=== PATIENT | female | born 1980 | race Caucasian/White ===

== ENCOUNTER 2016-07-13 12:17 | Emergency (ER) | payer MEDICAID ==
[~2016-07-13] VITALS: Ht 154.9 cm; Wt 58.0 kg
[~2016-07-13 12:17] MED LIST: ACET325T45 PO; ACYC400T2 PO; BACTDS PO; BEN25 PO; CEPH-443 PO; CIPR500T4 PO; FAMO20TA18 PO; HYDR-3498 PO; IBUP-1542 PO; IBUP400T22 PO; NAPR-260 PO; PRED20TA PO; TRAM50TA2 PO
[2016-07-13 12:19] VITALS: Ht 154.9 cm; Wt 58.0 kg
[2016-07-13] MEDS ORDERED: IBUP800T25 PO (13:42)
--- NOTE | 2016-07-13 13:44 | ERD ---
ER Documentation Chief Complaint Date/Time DATE: 07/13/16 TIME: 13:[address] TODAY HPI 35-year-old female who presents with sore throat today. 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 The patient describes mild headache, dry nonproductive cough, sore throat. She also describes mild ear congestion. She denies any fevers or chills, no difficulty swallowing. She has not taken anything for the symptoms. ROS All systems reviewed and are negative except as per history of present illness. Medications Home Meds Active Scripts Ibuprofen* (Motrin*) 800 Mg Tab, 800 MG PO Q6H Y for PAIN AND OR ELEVATED TEMP, #30 TAB Prov:CAROLE LINK MD 07/13/16 Ibuprofen* (Motrin*) 600 Mg Tab, 600 MG PO Q6H Y for PAIN AND OR ELEVATED TEMP, #30 TAB Prov:RAFFI CORDOBA PA-C 02/26/16 Hydrocodone Bit-Acetaminophen* ([place]*) 5-325 Mg Tab, 1 TAB PO Q4H Y for PAIN, # 10 TAB Prov:ANI HUMMEL PA-C 12/03/15 Acyclovir* (Acyclovir*) 400 Mg Tablet, 400 MG PO QID for 7 Days, TAB Prov:ANI HUMMEL PA-C 12/03/15 Diphenhydramine Hcl* (Benadryl*) 25 Mg Cap, 25 MG PO Q6 for ITCHING, #30 CAP Prov:JOSEPH MCNALLY DO 11/11/15 Prednisone* (Prednisone*) 20 Mg Tab, 60 MG PO DAILY for 5 Days, TAB Prov:JOSEPH MCNALLY DO 11/11/15 Ibuprofen* (Motrin*) 400 Mg Tab, 400 MG PO Q6H Y for PAIN, #30 TAB Prov:THEO DILL PA-C 09/18/15 Cephalexin* (Keflex*) 500 Mg Capsule, 500 MG PO QID for 10 Days, CAP Prov:THEO DILL PA-C 09/18/15 Sulfamethoxazole-Trimethoprim* (Bactrim* DS) 800-160 Mg Tab, 1 TAB PO BID for 7 Days, TAB Prov:THEO DILL PA-C 09/18/15 Tramadol HCl (Tramadol HCl) 50 Mg Tablet, 50 MG PO Q6 Y for PAIN, #20 TAB Prov:ADAMA PRINCE NP 07/09/15 Tramadol HCl (Tramadol HCl) 50 Mg Tablet, 50 MG PO Q4 Y for PAIN, #20 TAB Prov:ADAMA PRINCE NP 07/09/15 Ibuprofen* (Motrin*) 600 Mg Tab, 600 MG PO Q6, #20 TAB Prov:P[place]KE MD 04/29/15 Hydrocodone Bit-Acetaminophen* ([place]*) 5-325 Mg Tab, 1 TAB PO Q6 Y for PAIN, # 12 TAB Prov:P[place] LAKE MD 04/29/15 Naproxen* (Naprosyn*) 500 Mg Tablet, 500 MG PO BID Y for PAIN AND/OR INFLAMMATION, #30 TAB Prov:ARELIS REEDER PA-C 03/30/15 Ciprofloxacin Hcl* (Ciprofloxacin Hcl*) 500 Mg Tablet, 500 MG PO BID for 10 Days , TAB Prov:ARELIS REEDER PA-C 03/30/15 Acetaminophen* (Acetaminophen*) 325 Mg Tablet, 650 MG PO Q4H Y for PAIN AND OR ELEVATED TEMP, #30 TAB Prov:ARELIS REEDER PA-C 02/18/15 Famotidine* (Famotidine*) 20 Mg Tablet, 20 MG PO BID, #30 TAB Prov:ARELIS REEDER PA-C 02/18/15 Allergies Allergies: Coded Allergies: No Known Allergy (Unverified , 04/06/14) PMhx/Soc History of Surgery: No Anesthesia Reaction: No Hx Neurological Disorder: No Hx Respiratory Disorders: No Hx Cardiac Disorders: No Hx Psychiatric Problems: No Hx Miscellaneous Medical Probl: No Hx Alcohol Use: No Hx Substance Use: No Hx Tobacco Use: No FmHx Family History: No diabetes Physical Exam Vitals Vital Signs Date Time Temp Pulse Resp B/P Pulse Ox O2 Delivery O2 Flow Rate FiO2 07/13/16 12:19 98.4 77 20 115/58 99 Physical Exam General: Well developed, well nourished, no acute distress Head: Normocephalic, atraumatic. Eyes: Pupils equally reactive, EOM intact ENT: Moist mucous membranes, posterior pharynx with slight erythema no tonsillar swelling or exudates, uvula midline, tympanic membranes are nonbulging bilaterally Neck: Supple, no lymphadenopathy Respiratory: Lungs clear bilaterally, no distress Cardiovascular: RRR, no murmurs, rubs, or gallops Abdominal: Soft, non-tender, non-distended, no peritoneal signs : Deferred MSK: No edema, no unilateral swelling, 5/5 strength Neurologic: Alert and oriented, moving all extremities, normal speech, no focal weakness, no cerebellar signs Skin: No rash Psych: Normal mood Procedures/MDM The patient's clinical presentation is very consistent with an acute viral syndrome. 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 Based on history and clinical exam findings the patient does not appear to have evidence of pneumonia, strep pharyngitis, urinary tract infection, bacteremia, sepsis, or meningitis. For these reasons I do not believe it is necessary to obtain laboratory testing or diagnostic imaging. I believe it would be appropriate for symptom control, and close outpatient primary care follow-up. We discussed follow up with the patient's primary care doctor within 24 to 48 hours as needed. We also discussed return to the emergency room for worsening symptoms or worsening condition. Discharge Medications: Motrin Departure Diagnosis: Primary Impression: Acute viral pharyngitis Condition: Stable Patient Instructions: Pharyngitis, Viral Referrals: [facility] Usted se baxter hecho un examen mdico de control que le indica que no est en kristin condicin que requiera tratamiento urgente en el Departamento de Emergencia. Un estudio ms profundo y el tratamiento de aguilar condicin pueden esperar sin ningn riesgo hasta que usted sea atendida/o en el consultorio de aguilar mdico o kristin cl jared. Es responsabilidad suya arreglar kristin vadim para el seguimiento del arianna. MANEJO DE CONDICIONES NO URGENTES EN EL FUTURO 1) Si usted tiene un mdico de atencin primaria: Usted debera llamar a aguilar mdico de atencin primaria antes de venir al departamento de emergencia. Despus de las horas de consultorio, aguilar doctor o aguilar asociado/a est disponible por telfono. El mdico o enfermero de rosa en el servicio telefnico puede asesorarle por bora medio para atender el problema, o arianna contrario se puede programar kristin vadim. 2) Si usted no tiene un mdico de atencin primaria: Llame al mdico o clnica de referencia que aparece abajo manny las horas de consultorio para hacer kristin vadim para que le vean. CLINICAS: [facility] [phone] [facility] [phone] [address] [facility] [phone] [address] [facility]. [place] [id number] [phone] [facility] [place] [id number] [phone] [facility]. [phone] [facility]. [facility] () Usted se baxter hecho un examen mdico de control que le indica que no est en kristin condicin que requiera tratamiento urgente en el Departamento de Emergencia. Un estudio ms profundo y el tratamiento de aguilar condicin pueden esperar sin ningn riesgo hasta que usted sea atendida/o en el consultorio de aguilar mdico o kristin cl jared. Es responsabilidad suya arreglar kristin vadim para el seguimiento del arianna. MANEJO DE CONDICIONES NO URGENTES EN EL FUTURO 1) Si usted tiene un mdico de atencin primaria: Usted debera llamar a aguilar mdico de atencin primaria antes de venir al departamento de emergencia. Despus de las horas de consultorio, aguilar doctor o aguilar asociado/a est disponible por telfono. El mdico o enfermero de rosa en el servicio telefnico puede asesorarle por bora medio para atender el problema, o arianna contrario se puede programar kristin vadim. 2) Si usted no tiene un mdico de atencin primaria: Llame al mdico o condado institucions de referencia que aparece abajo manny las horas de consultorio para hacer kristin vadim para que le vean. SI USTED NO PUEDE PAGAR PARA HARDIK UN MEDICO puede ir a: [facility] [address] [place] [address] [facility] [address] [place] [address] [facility] [address] [place] [address] [facility] [facility] [address] [place], [place] [id number] Additional Instructions: Llame al doctor nombrado abajo (Referral Sources) MAANA y patrick kristin VADIM PARA DENTRO DE KRISTIN SEMANA. Dgale a la secretaria que nosotros le instruimos hacer esta vadim.Avise o llame si aguilar condicin se empeora antes de la vadim. CAROLE LINK MD Jul 13, 2016 13:44
== END 2016-07-13 14:11 | disposition home or self-care (01) ==
LOC: FTE 12:17
DX: J02.8 Acute pharyngitis due to other specified organisms (principal); B97.89 Other viral agents as the cause of diseases classified elsewhere
CPT/HCPCS: 99283

== ENCOUNTER 2016-07-20 14:02 | Emergency (ER) | payer MEDICAID ==
[~2016-07-20] VITALS: Wt 62.0 kg
[~2016-07-20 14:02] MED LIST changes: +IBUP800T25 PO
[2016-07-20] MEDS ORDERED: IBUP-1542 PO (15:27)
[2016-07-20] MEDS ORDERED: AMO500 PO (15:27)
--- NOTE | 2016-07-20 15:27 | ERD ---
ER Documentation Chief Complaint Date/Time DATE: 07/20/16 Chief Complaint Fever, Left ear pain HPI The patient is a 35-year-old female who presents the Emergency Department with complaint of left ear pain for the past 4 days. The patient reports that over the past week she has developed some nasal congestion, intermittent fevers, sore throat and a mild, dry cough. Four days ago she developed left-sided pulsating air pain, which has become progressively worse since onset. Over the past one day she has noted decreased acuity of hearing to that ear, though continues to experience the same pain. She denies any pain to the external ear. Denies any otorrhea or bloody discharge. Denies any recent swimming or large water exposure. She rates her current pain as 7 out of 10, the notes that she has not yet taken any medication for pain relief. She denies any neck pain, neck stiffness or new rashes. Denies sick contacts with similar symptoms. ROS All systems reviewed and are negative except as per history of present illness. Medications Home Meds Active Scripts Ibuprofen* (Motrin*) 600 Mg Tab, 600 MG PO Q6, #30 TAB Prov:SILVESTRE PIÑA PA-C 07/20/16 Amoxicillin* (Amoxicillin*) 500 Mg Cap, 500 MG PO TID for 10 Days, CAP Prov:SILVESTRE PIÑA PA-C 07/20/16 Ibuprofen* (Motrin*) 800 Mg Tab, 800 MG PO Q6H Y for PAIN AND OR ELEVATED TEMP, #30 TAB Prov:CAROLE LINK MD 07/13/16 Ibuprofen* (Motrin*) 600 Mg Tab, 600 MG PO Q6H Y for PAIN AND OR ELEVATED TEMP, #30 TAB Prov:RAFFI CORDOBA PA-C 02/26/16 Hydrocodone Bit-Acetaminophen* ([place]*) 5-325 Mg Tab, 1 TAB PO Q4H Y for PAIN, # 10 TAB Prov:ANI HUMMEL PA-C 12/03/15 Acyclovir* (Acyclovir*) 400 Mg Tablet, 400 MG PO QID for 7 Days, TAB Prov:ANI HUMMEL PA-C 12/03/15 Diphenhydramine Hcl* (Benadryl*) 25 Mg Cap, 25 MG PO Q6 for ITCHING, #30 CAP Prov:JOSEPH MCNALLY DO 11/11/15 Prednisone* (Prednisone*) 20 Mg Tab, 60 MG PO DAILY for 5 Days, TAB Prov:ELIZABETHGENEVIEVECHANCELEISA Rojas DO 11/11/15 Ibuprofen* (Motrin*) 400 Mg Tab, 400 MG PO Q6H Y for PAIN, #30 TAB Prov:THEO DILLC 09/18/15 Cephalexin* (Keflex*) 500 Mg Capsule, 500 MG PO QID for 10 Days, CAP Prov:THEO DILLC 09/18/15 Sulfamethoxazole-Trimethoprim* (Bactrim* DS) 800-160 Mg Tab, 1 TAB PO BID for 7 Days, TAB Prov:THEO DILLC 09/18/15 Tramadol HCl (Tramadol HCl) 50 Mg Tablet, 50 MG PO Q6 Y for PAIN, #20 TAB Prov:ADAMA PRINCE NP 07/09/15 Tramadol HCl (Tramadol HCl) 50 Mg Tablet, 50 MG PO Q4 Y for PAIN, #20 TAB Prov:ADAMA PRINCE NP 07/09/15 Ibuprofen* (Motrin*) 600 Mg Tab, 600 MG PO Q6, #20 TAB Prov:PAL LAKE MD 04/29/15 Hydrocodone Bit-Acetaminophen* ([place]*) 5-325 Mg Tab, 1 TAB PO Q6 Y for PAIN, # 12 TAB Prov:PAL LAKE MD 04/29/15 Naproxen* (Naprosyn*) 500 Mg Tablet, 500 MG PO BID Y for PAIN AND/OR INFLAMMATION, #30 TAB Prov:ARELIS REEDER PA-C 03/30/15 Ciprofloxacin Hcl* (Ciprofloxacin Hcl*) 500 Mg Tablet, 500 MG PO BID for 10 Days , TAB Prov:ARELIS REEDER PA-C 03/30/15 Acetaminophen* (Acetaminophen*) 325 Mg Tablet, 650 MG PO Q4H Y for PAIN AND OR ELEVATED TEMP, #30 TAB Prov:ARELIS REEDER PA-C 02/18/15 Famotidine* (Famotidine*) 20 Mg Tablet, 20 MG PO BID, #30 TAB Prov:ARELIS REEDER PA-C 02/18/15 Allergies Allergies: Coded Allergies: No Known Allergy (Unverified , 04/06/14) PMhx/Soc History of Surgery: No Anesthesia Reaction: No Hx Neurological Disorder: No Hx Respiratory Disorders: No Hx Cardiac Disorders: No Hx Psychiatric Problems: No Hx Miscellaneous Medical Probl: No Hx Alcohol Use: No Hx Substance Use: No Hx Tobacco Use: No Physical Exam Vitals Vital Signs Date Time Temp Pulse Resp B/P Pulse Ox O2 Delivery O2 Flow Rate FiO2 07/20/16 14:28 98.8 70 20 115/65 98 Physical Exam GENERAL: Well-developed, well-nourished, in no acute distress HEENT: Head is normocephalic, atraumatic. No scleral pallor or icterus. Pupils equal, round and reactive to light. Extraocular movements intact. Conjunctiva pink. Left tympanic membrane is erythematous, with a small perforation noted. No erythema or edema of external auditory canals. Hearing grossly intact. No mastoid tenderness. No tenderness upon palpation or manipulation of tragus or pinna. Right tympanic membrane is clear with no evidence of erythema, effusion or dulling of the light reflex. Moist mucous membranes. No pharyngeal erythema or exudates. Uvula is midline. NECK: Supple. No masses, no tenderness, no lymphadenopathy. Trachea midline. No nuchal rigidity. Full range of motion. RESPIRATORY: Lungs are clear to auscultation bilaterally. No rales, rhonchi or wheezing. Equal breath sounds. Normal expiratory effort. CARDIOVASCULAR: Regular rate and rhythm. S1 and S2 normal. GASTROINTESTINAL: Abdomen is soft, nontender, and nondistended. EXTREMITIES: No clubbing, cyanosis, or edema. Normal skin perfusion. Moving all extremities. No focal swelling or erythema. Distal pulses are palpable, 2+ bilaterally. Capillary refill is less than 2 seconds. NEUROLOGIC: The patient is alert, awake, and oriented x 3. No focal neurologic deficits. Speech is normal. INTEGUMENT: Skin is clean, dry and intact. No rashes, lesions or petechiae present. Normal turgor. PSYCHIATRIC: Appropriate; Cooperative. Procedures/MDM This is a 35-year-old female presenting to the Emergency Department with complaint of left ear pain, worsening over the past 4 days. Over the past week she has developed a mild, dry cough, sore throat and intermittent fevers. On physical examination, the patient's left tympanic membrane was erythematous with a perforation noted. Otherwise, vital signs were normal. She had no mastoid tenderness, no preauricular tenderness. Hearing is grossly intact. No otorrhea or bloody discharge. No tenderness to palpation or manipulation of tragus or pinna. No foreign bodies were noted. The differential diagnosis includes, but is not limited to, otitis media, otitis externa, ear foreign body , cerumen impaction, ruptured tympanic membrane, sinusitis, URI, tinnitus, mastoiditis, viral syndrome, cholesteatoma, auditory tube dysfunction, osteoma, referred pain, trauma, bullous myringitis, Brothers-Brandon syndrome. After rest, the patient has no new complaints. Upon my review and interpretation of the patient's presentation and overall ER course, I believe the patient's symptoms are most consistent with acute otitis media with perforation. At this time, the patient is in stable condition and therefore can be discharged home with a prescription for Amoxicillin and Ibuprofen, and strict return precautions for signs of deteriorating or worsening condition. The patient is instructed to follow up with a primary medical provider within 2-3 days for reevaluation and further management or to return to the ER sooner for any new or worsening symptoms. I shared my medical decision making and plan with the patient and she verbally understands and agrees with the plan for further observation and care as an outpatient. At the time of discharge, all questions were answered. Departure Diagnosis: Primary Impression: Acute otitis media of left ear with perforated tympanic membrane Additional Impression: Upper respiratory infection Condition: Stable Patient Instructions: Eardrum Rupture (Perforation), Otitis Media, Abx Tx ( Adult) Additional Instructions: Llame al doctor MAANA y patrick kristin VADIM PARA DENTRO DE 2-3 GO.Dgale a la secretaria que nosotros le instruimos hacer esta vadim.Avise o llame si aguilar condicin se empeora antes de la vadim. Regresa aqui si peor o no mejor. SILVESTRE PIÑA PA-C Jul 20, 2016 15:27
== END 2016-07-20 15:26 | disposition home or self-care (01) ==
LOC: E/R 14:02
DX: H66.92 Otitis media, unspecified, left ear (principal)
CPT/HCPCS: 99283

== ENCOUNTER 2017-01-13 13:46 | Emergency (ER) | payer MEDICAID ==
[~2017-01-13] VITALS: Ht 162.6 cm; Wt 53.5 kg
[~2017-01-13 13:46] MED LIST changes: +AMO500 PO
[2017-01-13 13:48] VITALS: Ht 162.6 cm; Wt 53.5 kg
[2017-01-13] MEDS ORDERED: KETOROLAC 60 MG INJ IM STA (14:12)
--- NOTE | 2017-01-13 16:03 | RADRPT ---
PROCEDURE: XR Sacrum and Coccyx. CLINICAL INDICATION: Low back pain TECHNIQUE: AP and lateral views of the sacrum and coccyx were performed. COMPARISON: No prior studies are available for comparison. FINDINGS: There is normal sacral and coccygeal mineralization and alignment. No fracture or subluxation is see n. The sacroiliac joints appear normal. The soft tissues are unremarkable. IMPRESSION: Unremarkable x-ray examination of the sacrum and coccyx. RPTAT: HPNM Physician Marti Date Time Electronically viewed and signed by Physician Marti on 01/13/2017 16:03 /
--- NOTE | 2017-01-13 16:05 | RADRPT ---
PROCEDURE: XR Hip. CLINICAL INDICATION: Bilateral hip pain TECHNIQUE: AP view of the pelvis and an AP and frog-leg lateral views of the bilateral hips were obtained. COMPARISON: None FINDINGS: No acute fracture or dislocations are seen. The osseous structures are well mineralized. The soft tissue structures are intact. IMPRESSION: Unremarkable bilateral hip series. RPTAT: HPNM Physician Marti Date Time Electronically viewed and signed by Michael Dangelo Physician on 01/13/2017 16:04 /
[2017-01-13] MEDS ORDERED: IBUP-1542 PO (16:13)
[2017-01-13] MEDS ORDERED: HYDR-906 PO (16:13)
[2017-01-13 16:23] VITALS: BP 118/72; PULSE 72; RESP 18; TEMP 98.6
--- NOTE | 2017-01-13 16:48 | ERD ---
ER Documentation Chief Complaint Date/Time DATE: 01/13/17 TIME: 16:44 Chief Complaint low back pain from fall year ago , pain worse today HPI This is a 36-year-old female that presents to the ER with lower back pain that started 2 years ago after she fell down on her back. Patient is not complaining of tailbone pain that radiates into bilateral hips. She denies any leg numbness tingling or leg pain. She has not had any fevers or chills. She does not have any urinary bowel incontinence. She does not have any urinary frequency or dysuria. Pain is intermittent and severe. Patient tried taking ibuprofen for the pain however did not work. ROS 12 point review of systems was done, all negative except per HPI. Medications Home Meds Active Scripts Hydrocodone/Acetaminophen (Aguirre 5-325 Tablet) 1 Each Tablet, 1 TAB PO Q6H Y for PAIN, #7 TAB Prov:GONZALES GOOD 01/13/17 Ibuprofen* (Motrin*) 600 Mg Tab, 600 MG PO Q6, #30 TAB Prov:GONZALES GOOD 01/13/17 Ibuprofen* (Motrin*) 600 Mg Tab, 600 MG PO Q6, #30 TAB Prov:SILVESTRE PIÑA PA-C 07/20/16 Amoxicillin* (Amoxicillin*) 500 Mg Cap, 500 MG PO TID for 10 Days, CAP Prov:SILVESTRE PIÑA PA-C 07/20/16 Ibuprofen* (Motrin*) 800 Mg Tab, 800 MG PO Q6H Y for PAIN AND OR ELEVATED TEMP, #30 TAB Prov:CAROLE LINK MD 07/13/16 Ibuprofen* (Motrin*) 600 Mg Tab, 600 MG PO Q6H Y for PAIN AND OR ELEVATED TEMP, #30 TAB Prov:RAFFI CORDOBA PA-C 02/26/16 Hydrocodone Bit-Acetaminophen* (Aguirre*) 5-325 Mg Tab, 1 TAB PO Q4H Y for PAIN, # 10 TAB Prov:ANI HUMMEL PA-C 12/03/15 Acyclovir* (Acyclovir*) 400 Mg Tablet, 400 MG PO QID for 7 Days, TAB Prov:ANI HUMMEL PA-C 12/03/15 Diphenhydramine Hcl* (Benadryl*) 25 Mg Cap, 25 MG PO Q6 for ITCHING, #30 CAP Prov:DALIAJAYFANYS Crystal DO 11/11/15 Prednisone* (Prednisone*) 20 Mg Tab, 60 MG PO DAILY for 5 Days, TAB Prov:DALICHANCEMOISESS Crystal DO 11/11/15 Ibuprofen* (Motrin*) 400 Mg Tab, 400 MG PO Q6H Y for PAIN, #30 TAB Prov:THEO DILLC 09/18/15 Cephalexin* (Keflex*) 500 Mg Capsule, 500 MG PO QID for 10 Days, CAP Prov:THEO DILLC 09/18/15 Sulfamethoxazole-Trimethoprim* (Bactrim* DS) 800-160 Mg Tab, 1 TAB PO BID for 7 Days, TAB Prov:THEO DILLC 09/18/15 Tramadol HCl (Tramadol HCl) 50 Mg Tablet, 50 MG PO Q6 Y for PAIN, #20 TAB Prov:ADAMA PRINCE NP 07/09/15 Tramadol HCl (Tramadol HCl) 50 Mg Tablet, 50 MG PO Q4 Y for PAIN, #20 TAB Prov:ADAMA PRINCE NP 07/09/15 Ibuprofen* (Motrin*) 600 Mg Tab, 600 MG PO Q6, #20 TAB Prov:PAL LAKE MD 04/29/15 Hydrocodone Bit-Acetaminophen* (Aguirre*) 5-325 Mg Tab, 1 TAB PO Q6 Y for PAIN, # 12 TAB Prov:PAL LAKE MD 04/29/15 Naproxen* (Naprosyn*) 500 Mg Tablet, 500 MG PO BID Y for PAIN AND/OR INFLAMMATION, #30 TAB Prov:ARELIS REEDER PA-C 03/30/15 Ciprofloxacin Hcl* (Ciprofloxacin Hcl*) 500 Mg Tablet, 500 MG PO BID for 10 Days , TAB Prov:ARELIS REEDER PA-C 03/30/15 Acetaminophen* (Acetaminophen*) 325 Mg Tablet, 650 MG PO Q4H Y for PAIN AND OR ELEVATED TEMP, #30 TAB Prov:ARELIS REEDER PA-C 02/18/15 Famotidine* (Famotidine*) 20 Mg Tablet, 20 MG PO BID, #30 TAB Prov:ARELIS REEDER PA-C 02/18/15 Allergies Allergies: Coded Allergies: No Known Allergy (Unverified , 04/06/14) PMhx/Soc History of Surgery: No Anesthesia Reaction: No Hx Neurological Disorder: No Hx Respiratory Disorders: No Hx Cardiac Disorders: No Hx Psychiatric Problems: No Hx Miscellaneous Medical Probl: No Hx Alcohol Use: No Hx Substance Use: No Hx Tobacco Use: No Smoking Status: Never smoker Physical Exam Vitals Vital Signs Date Time Temp Pulse Resp B/P Pulse Ox O2 Delivery O2 Flow Rate FiO2 01/13/17 16:23 98.6 72 18 118/72 99 01/13/17 13:48 98.6 76 16 122/68 99 Physical Exam GENERAL: The patient is well developed and appropriate for usual state of health , in no apparent distress. CHEST: Clear to auscultation bilaterally. There are no rales, wheezes or rhonchi. HEART: Regular rate and rhythm. No murmurs, clicks, rubs or gallops. ABDOMEN: Soft, nontender and nondistended. BACK: No midline or flank tenderness. There is no lumbar spine tenderness, patient is tender to palpation to the tailbone. Tense paraspinal muscles. Negative leg raise test. No step- offs. Patient has full range of motion and nonpainful of bilateral hips. EXTREMITIES: No focal swelling or erythema. Full range of motion. Grossly neurovascularly intact. NEURO: Alert and oriented. Cranial nerves II through XII are intact. Motor strength in all 4 extremities with 5/5 strength. Sensation grossly intact. Normal speech and gait. SKIN: There is no apparent rash or petechia. The skin is warm and dry. Results 24 hrs Current Medications Medications (Trade) Dose Ordered Sig/Yue Route PRN Reason Start Time Stop Time Status Last Admin Dose Admin Ketorolac Tromethamine (Toradol) 60 mg ONCE STAT IM 01/13/17 14:12 01/13/17 14:14 DC 01/13/17 14:46 Procedures/MDM Differential Diagnosis includes but is not limited to back strain, vertebral fracture, epidural abscess, cauda equina, herniated disc, AAA rupture, kidney stones, UTI, pyelonephritis. This is a 36-year-old female presents to the ER with tailbone pain, at this time patient is neurovascularly intact ambulates in the ER without any problems. Patient was given Toradol and felt significantly better after this. Patient is afebrile and extremely well-appearing. Patient has had this pain for over 2 years, since likely acute on chronic pain. Patient is to follow-up with her primary care doctor within 1-2 days return to ER sooner if symptoms worsen. My medical history the patient she understands and agrees with plan. Departure Diagnosis: Primary Impression: Coccyxdynia Condition: Stable Patient Instructions: Self-Care for Low Back Pain Additional Instructions: Call your primary care doctor TOMORROW for an appointment during the next 1-2 days.See the doctor sooner or return here if your condition worsens before your appointment time. GONZALES GOOD Jan 13, 2017 16:48
== END 2017-01-13 16:25 | disposition home or self-care (01) ==
LOC: FTE 13:46
DX: M53.3 Sacrococcygeal disorders, not elsewhere classified (principal)
CPT/HCPCS: 72220; 73520; 96372; J1885; Z7502

== ENCOUNTER 2017-08-31 04:36 | Emergency (ER) | END 2017-08-31 07:48 | disposition home or self-care (01) ==

== ENCOUNTER 2017-12-29 15:54 | Emergency (ER) | END 2017-12-29 18:14 | disposition home or self-care (01) ==

== ENCOUNTER 2018-02-02 21:53 | Emergency (ER) | END 2018-02-03 01:50 | disposition home or self-care (01) ==